=== PATIENT | male | born 1980 | race Two or more races ===

== ENCOUNTER 2016-11-13 20:00 | Emergency (ER) | payer OTHER ==
--- NOTE | 2016-11-13 20:43 | EDPHY ---
H & P Stated Complaint: SORE R FOOT X 4 DAYS Time Seen by Provider: 11/13/16 20:26 HPI/ROS: CHIEF COMPLAINT: Foot pain HISTORY OF PRESENT ILLNESS: This is a generally healthy 36-year-old male who presents with 4 days of pain at the base of his right great toe. No known trauma. He had a similar episode about 4 years ago that resolved on its own after about a month. Over the past few days he has been taking ibuprofen, 600 mg every 8-10 hours. He notes that the painful area is red and slightly warm. He describes the pain as severe. It is exacerbated by weight-bearing and by any touch. He has not otherwise been ill. He denies fever. REVIEW OF SYSTEMS: A ten point review of systems was performed and is negative with the exception of the items mentioned in the HPI. Source: Patient Exam Limitations: No limitations - Personal History Current Tetanus/Diphtheria Vaccine: Yes - Medical/Surgical History Hx Asthma: No Hx Chronic Respiratory Disease: No Hx Diabetes: No Hx Cardiac Disease: No Hx Renal Disease: No Hx Cirrhosis: No Hx Alcoholism: No Hx HIV/AIDS: No Hx Splenectomy or Spleen Trauma: No - Social History Smoking Status: Former smoker Additional Social History: He is . He works as a facility maintenance mechanic. - Physical Exam Exam: General Appearance: Alert. Vital signs reviewed. Triage blood pressure 167/ 87. Eyes: Pupils equal and round, no conjunctival injection, no discharge. Anicteric. ENT, Mouth: Mucous membranes are moist, no oropharyngeal erythema or edema. Neck: No lymphadenopathy. Respiratory: Lungs are clear to auscultation; no wheezes, rales, or rhonchi. Cardiovascular: Regular rate and rhythm; no murmur, rub, or gallop. Gastrointestinal: Abdomen is soft and nontender, no masses or organomegaly, bowel sounds normal. Skin: Warm and dry, no rashes on exposed skin, normal color. Extremities: Right foot with erythema at the 1st metatarsophalangeal joint. This area is warm and tender to the touch. No swelling. No fluctuance. He has full active range of motion of all 5 toes on the right and of his right ankle. Sensation is intact to light touch over the right lower extremity. Neurological: Alert and oriented. Moving all four extremities easily and equally. Psychiatric: Normal affect. Constitutional: Initial Vital Signs Temperature (C) 36.7 C 11/13/16 20:10 Heart Rate 76 11/13/16 20:10 Respiratory Rate 16 11/13/16 20:10 Blood Pressure 167/86 H 11/13/16 20:10 O2 Sat (%) 97 11/13/16 20:10 O2 Delivery Mode Room Air Allergies/Adverse Reactions: No Known Allergies Allergy (Verified 11/13/16 20:18) Home Medications: Medication Instructions Recorded Indomethacin [Indocin 25 mg (*)] 50 mg PO TID #30 cap 11/13/16 Medical Decision Making - Diagnostics Imaging: I viewed and interpreted images myself ED Course/Re-evaluation: X-ray of his foot is negative for fracture or other bony abnormality. History and physical is consistent with an episode of gout. This was his suspicion. I do not think that uric acid measurement will be helpful in the midst of this flare. I am recommending treatment with high-dose anti- inflammatory medication and further evaluation as warranted once this flare has subsided. His been taking ibuprofen with minimal relief. He is given a prescription for indomethacin. I do not suspect osteomyelitis. Was does not appear to be cellulitis. He has not had trauma and there is no evidence of fracture or dislocation on his x- ray. No other joint involvement. Departure - Departure Disposition: Home, Routine, Self-Care Clinical Impression: Gout attack Qualifiers: Gout site: toe Gout etiology: idiopathic Laterality: right Qualified Code(s): M10.071 - Idiopathic gout, right ankle and foot Condition: Good Instructions: Gout (ED) Additional Instructions: When you get home this evening take ibuprofen 800 mg. You can also take Tylenol 650 mg. You can take the Tylenol every 4 hours. Tomorrow fill the prescription for the indomethacin. Take this 3 times daily until your pain is better, then continue to take it three times daily for 1-2 more days. Follow up at [facility] when you are feeling better. Let them know that you had your second gout attack. If you are not getting better or if you are getting worse--more redness, more warmth, swelling, fever, any new or concerning symptoms--you should be re- examined. Referrals: GABRIEL COLLIER,. [Primary Care Provider] - As per Instructions Prescriptions: Indomethacin [Indocin 25 mg (*)] 50 mg PO TID #30 cap
[2016-11-13 21:02] VITALS: O2SAT 96
[2016-11-13 21:39] VITALS: BP 131/88; PULSE 67; RESP 16; TEMP 98.2
== END 2016-11-13 21:41 | disposition home or self-care (01) ==
LOC: CED 20:00
DX: M10.9 Gout, unspecified (principal); Z87.891 Personal history of nicotine dependence
CPT/HCPCS: 73630-PO

== ENCOUNTER 2017-08-31 17:30 | Emergency (ER) | payer SELFPAY ==
[2017-08-31] MEDS ORDERED: PROPARACAINE/FLUORESCEIN SOD 5 ML OPHT.BTL ONE (17:45)
--- NOTE | 2017-08-31 17:58 | EDPHY ---
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 He reports that he feels some mild irritation. His looked into his eye and noted a small araya colored piece of plastic near the iris. Patient reports that he does not wear contact lenses. He was not wearing safety goggles while at work yesterday as he was only unpacking supplies. Patient denies any visual changes, visual floaters, photophobia. Reports tetanus is current. Modifying Factors: None Comment: ROS: see HPI Constitutional: No fever, no chills, no weight loss Eyes: No blurred vision Respiratory: No shortness of breath, no cough Cardiovascular: No chest pain, no palpitations Gastrointestinal: No nausea, no vomiting, no diarrhea, no hematemesis, no blood in stool Genitourinary: No dysuria, no blood in urine Extremities: No myalgias, no edema Neurologic: No weakness, no numbness Skin: No rashes, no petechiae Hematologic: No bruising, no bleeding MEDICAL/SURGICAL/SOCIAL HISTORY: Medical history: Gout. Surgical history: Denies Social history: Former smoker. Family history noncontributory. General appearance: The extremely pleasant middle-aged male, awake and alert Visual Acuity: noted from Nurse's notes. Pupils: equal round and reactive to light. EOMI. Lids: no edema or swelling Skin: no proptosis, no periorbital erythema or swelling, no vesicles Conjunctivae: left Mildly injected, no discharge Cornea: exam with fluorescein shows shows no uptake. Small Chanelle color foreign body noted at 6:00 position. No rust ring. Anterior chamber: normal, no hyphema or hypopyon Source: Patient Exam Limitations: No limitations - Personal History Current Tetanus/Diphtheria Vaccine: Yes - Medical/Surgical History Hx Asthma: No Hx Chronic Respiratory Disease: No Hx Diabetes: No Hx Cardiac Disease: No Hx Renal Disease: No Hx Cirrhosis: No Hx Alcoholism: No Hx HIV/AIDS: No Hx Splenectomy or Spleen Trauma: No Other PMH: GOUT - Social History Smoking Status: Former smoker Constitutional: Initial Vital Signs Temperature (C) 36.8 C 08/31/17 17:33 Heart Rate 87 08/31/17 17:33 Respiratory Rate 18 08/31/17 17:33 Blood Pressure 123/81 H 08/31/17 17:33 O2 Sat (%) 95 08/31/17 17:33 O2 Delivery Mode Room Air Allergies/Adverse Reactions: No Known Allergies Allergy (Verified 08/31/17 17:32) Home Medications: Medication Instructions Recorded NK [No Known Home Meds] 08/31/17 Medical Decision Making Procedures: Procedure: Foreign body removal from cornea: Anesthesia: Topical. After verbal consent from the patient, an embedded foreign body was removed from the cornea of the left eye. The foreign body was removed manually using a cotton tip applicator using direct visualization. Following removal there was no significant rust ring. There were no complications and the patient tolerated the procedure well. The procedure was performed by myself. ED Course/Re-evaluation: Patient does not wear contact lenses. Tetanus is up-to-date. Slit-lamp exam with fluorescein. Small piece of plastic at 6:00 position removed using cotton tip applicator. Removal did not perforate cornea. No rust ring appreciated. Eyes copiously irrigated. Given Tobramycin eyedrops. Patient does not have significant photophobia and I do not believe cycloplegics are indicated. This patient was seen under the supervision of my secondary supervising physician. I evaluated care for this patient independently. Discussed this patient with Dr. Randolph who did not see the patient. Differential Diagnosis: Differential diagnosis includes but is not limited to gingival laceration, conjunctivitis, corneal abrasion, ocular foreign body, corneal ulcer, globe rupture. Departure - Departure Disposition: Home, Routine, Self-Care Clinical Impression: Foreign body of left eye Qualifiers: Encounter type: initial encounter Qualified Code(s): T15.92XA - Foreign body on external eye, part unspecified, left eye, initial encounter Condition: Good Instructions: Eye Foreign Body (ED) Additional Instructions: Please wear safety glasses or goggles while at work. Use Tobramycin eye drops in left eye; 1 drop every 6 hr while awake x 5 days. Eye Complaint: Return to the Emergency Department for any increase in eye pain, redness, swelling, discharge or any worsening of your vision. Follow-up with Ophthalmology if any new or worsening symptoms. It is also recommended that you have yearly eye exam. Referrals: Shy Vazquez MD [Medical Doctor] - Follow Up Only If Needed
[2017-08-31] MEDS ORDERED: TOBRAMYCIN 0.3% SOLN PREPACK OPHT.BTL TAKEHOME ONE (18:43)
[2017-08-31 19:03] VITALS: BP 122/85
== END 2017-08-31 19:01 | disposition home or self-care (01) ==
PROC: 08C9XZZ Extirpation of Matter from Left Cornea, External Approach (ICD-10-PCS; principal; 2017-08-31)
DX: T15.02XA Foreign body in cornea, left eye, initial encounter (principal); Z87.891 Personal history of nicotine dependence; X58.XXXA Exposure to other specified factors, initial encounter; Y99.8 Other external cause status; Y93.01 Activity, walking, marching and hiking